=== PATIENT | female | born 1985 | race Caucasian/White ===

== ENCOUNTER 2020-02-13 22:04 | Emergency (ER) | payer BC ==
[2020-02-13] MEDS ORDERED: ASPIRIN 81 MG TABLET, CHEWABLE PO ONE (22:21)
--- NOTE | 2020-02-13 22:22 | ER Document Report ---
ED Medical Screen (RME) - General Chief Complaint: Chest Pain Stated Complaint: CHEST PAIN Time Seen by Provider: 02/13/20 22:20 Notes: HPI: 34-year-old female who is on control presenting for evaluation of left chest tightness and discomfort. Started 3 days ago some tightness across the upper chest that was intermittent in nature. Tonight it became more constant as a tightness in the left chest with some radiation into the left narayan ulder and occasional shortness of breath. No prior history of similar discomfort. No significant family history of early coronary artery disease. I have greeted and performed a rapid initial assessment of this patient. A comprehensive ED assessment and evaluation of the patient, analysis of test results and completion of the medical decision making process will be conducted by additional ED providers PHYSICAL EXAMINATION: Patient is mildly tachycardic. Lung sounds are clear to auscultation. She has no reproducible pain in the left chest wall on palpation. EKG shows some mild depression of the inferior leads Past Medical History - Social History Chew tobacco use (# tins/day): No Frequency of alcohol use: None Drug Abuse: None Physical Exam - Vital signs Vitals: Temp Pulse Resp BP Pulse Ox 97.4 F 71 20 150/102 H 81 L 02/13/20 22:17 02/13/20 22:17 02/13/20 22:17 02/13/20 22:17 02/13/20 22:17 Course - Vital Signs Vital signs: Temp Pulse Resp BP Pulse Ox 97.4 F 71 20 150/102 H 81 L 02/13/20 22:17 02/13/20 22:17 02/13/20 22:17 02/13/20 22:17 02/13/20 22:17
[2020-02-13 22:49] LABS: ABSOLUTE BASOPHILS # (AUTO) 0.1 10^3/uL (0.0-0.2); ABSOLUTE EOSINOPHILS # (AUTO) 0.2 10^3/uL (0.0-0.6); ABSOLUTE MONOCYTES (AUTO) 0.8 10^3/uL (0.1-1.4); ABSOLUTE NEUT (AUTO) 7.1 10^3/uL (1.7-8.2); BASOPHILS % (AUTO) 1.1 % (0-2); EOSINOPHILS % (AUTO) 1.5 % (0-6); HEMATOCRIT 41.5 % (36.0-47.0); HEMOGLOBIN 13.8 g/dL (12.0-15.5); LYMPHOCYTES % (AUTO) 27.1 % (13-45); MEAN CORPUSCULAR HEMOGLOBIN 26.8 pg (27.0-33.4); MEAN CORPUSCULAR HGB CONC 33.2 g/dL (32.0-36.0); MEAN CORPUSCULAR VOLUME 81 fl (80-97); MONOCYTES % (AUTO) 6.8 % (3-13); PLATELET COUNT 227 10^3/uL (150-450); RED BLOOD COUNT 5.14 10^6/uL (3.72-5.28); RED CELL DISTRIBUTION WIDTH 13.1 % (11.5-14.0); SEGMENTED NEUTROPHILS % (AUTO) 63.5 % (42-78); TOTAL CELLS COUNTED % (AUTO) 100 %; WHITE BLOOD COUNT 11.2 10^3/uL (4.0-10.5)
[2020-02-13 23:09] LABS: ALBUMIN 4.1 g/dL (3.5-5.0); ALKALINE PHOSPHATASE 80 U/L (38-126); ANION GAP 12 (5-19); ASPARTATE AMINO TRANSFERASE 18 U/L (14-36); BILIRUBIN,DIRECT 0.3 mg/dL (0.0-0.4); BILIRUBIN,TOTAL 0.4 mg/dL (0.2-1.3); BLOOD UREA NITROGEN 17 mg/dL (7-20); CALCIUM 9.9 mg/dL (8.4-10.2); CARBON DIOXIDE 25 mmol/L (22-30); CHLORIDE 102 mmol/L (98-107); GLUCOSE 112 mg/dL (75-110); POTASSIUM 4.1 mmol/L (3.6-5.0)
--- NOTE | 2020-02-13 23:14 | RADIOLOGY REPORT (SQ) ---
EXAM DESCRIPTION: PA and lateral radiographs of the chest. CLINICAL HISTORY: 34 years Female, chest pain COMPARISON: None. FINDINGS: Lungs: Lungs are clear. No pneumonia or edema. No pneumothorax or pleural effusion. Mediastinum: Cardiac and mediastinal silhouette are normal. Bones: Osseous structures are normal. IMPRESSION: Unremarkable radiographs of the chest
--- NOTE | 2020-02-13 23:47 | ER Document Report ---
ED Cardiac - General Chief Complaint: Chest Pain Stated Complaint: CHEST PAIN Time Seen by Provider: 02/13/20 22:20 Primary Care Provider: BELLA ROBLES MD [Primary Care Provider] - Follow up as needed SABI STRAUSS MD [ACTIVE STAFF] - Follow up in 1 week ZBIGNIEW ROBERTSON MD [ACTIVE STAFF] - Follow up in 1 week GERALD WILKINS MD [EMERITUS] - Follow up in 1 week Notes: Patient is a 34-year-old female who presents to the emergency department with a chief complaint of chest pain. Patient states that her chest pain started about 2 to 3 days ago and she felt a "warmth" in her chest. States that it would come and go and then tonight it got worse. Patient states that her pain is in the left side of her chest. She also reports a tightness in her chest. States that this evening she felt some tingling in her left arm. Patient is currently on control. She also has history of vitamin D deficiency, which she takes [id number] vitamin D4. Patient states that she took the aspirin in triage and a few minutes later she felt better. States that the pain is still there, but not quite as intense. - Related Data Allergies/Adverse Reactions: No Known Allergies Allergy (Unverified 02/13/20 22:23) Past Medical History - Social History Smoking Status: Never Smoker Chew tobacco use (# tins/day): No Frequency of alcohol use: None Drug Abuse: None Family History: Reviewed & Not Pertinent Patient has suicidal ideation: No Patient has homicidal ideation: No Review of Systems - Review of Systems Notes: REVIEW OF SYSTEMS: CONSTITUTIONAL : Denies recent illness. Denies recent unintentional weight loss. Denies fever, chills, or sweats. EENT: Denies eye, ear, throat, or mouth pain, discharge, or symptoms. Denies nasal or sinus congestion. CARDIOVASCULAR: See HPI. RESPIRATORY: Denies shortness of breath, cough, congestion, difficulty breathing, or wheezing. GASTROINTESTINAL: Denies nausea, vomiting, and diarrhea. Denies abdominal pain. Denies constipation. GENITOURINARY: Denies difficulty urinating, burning, blood in urine, urgency or frequency. MUSCULOSKELETAL: Denies neck and back pain. Denies joint pain or swelling. SKIN: Denies rash, itchiness, or lesions HEMATOLOGIC : Denies easy bruising or bleeding. LYMPHATIC: Denies swollen, painful, enlarged glands. NEUROLOGICAL: Denies no numbness or tingling denies weakness. Denies headache. Denies altered mental status. Denies alteration in speech. PSYCHIATRIC: Denies stress, anxiety, alteration in sleep patterns, or depression. All other systems reviewed and negative. Physical Exam - Vital signs Vitals: Pulse Ox 100 02/13/20 22:04 - Notes Notes: PHYSICAL EXAMINATION: GENERAL: Appears well, healthy, well-nourished, no acute distress. HEAD: Normocephalic, atraumatic. EYES: PERRL, conjunctiva normal, all extraocular movements intact, sclera hans cteric ENT: Moist mucous membranes. NECK: Supple, no noticeable swelling, redness, rash. Normal range of motion. LUNGS: Equal breath sounds bilaterally and clear to auscultation. No wheezes rales or rhonchi. CARDIOVASCULAR: S1-S2, tachycardic, regular rhythm. Radial pulses 2+, normal. ABDOMEN: Normoactive bowel sounds. Soft, nontender, no guarding, no rebound tenderness, and no masses palpated. EXTREMITIES: Normal strength and range of motion, no pitting or edema. No cyanosis. NEUROLOGICAL: Moves all extremities upon command. Strength 5/5 in all extremities. PSYCH: Normal mood, normal affect. SKIN: Warm, dry. No rash, lesions, ulcerations noted. Normal skin turgor. Course - Re-evaluation Re-evalutation: 02/14/20 01:00 Hematology shows a leukocytosis of 11,200. Chemistries are unremarkable. Initial troponin is 0.015. Due to the patient having an initial troponin of 0.2015, the patient will stay for another repeat troponin. CTA of the chest is negative for a PE. Chest x-ray was normal. 02/14/20 05:11 Second troponin is negative. Advised patient to follow-up with cardiology. She is in agreement with this plan. Follow-up precautions were given. Verbal discharge instructions were given to the patient. They verbalized understanding. They are stable for discharge. - Vital Signs Vital signs: Temp Pulse Resp BP Pulse Ox 98.2 F 96 18 130/91 H 99 02/14/20 05:19 02/14/20 05:19 02/14/20 05:19 02/14/20 05:19 02/14/20 05:19 - Laboratory Result Diagrams: 02/13/20 22:35 02/13/20 22:35 Laboratory results interpreted by me: 02/13/20 02/13/20 22:35 22:35 WBC 11.2 H MCH 26.8 L Glucose 112 H - EKG Interpretation by Me Additional EKG results interpreted by me: 02/14/20 Sinus tachycardia. Heart rate 103. LA 132; QRS 92; QT 344; QTc 451. No ST elevations or depressions noted. No previous EKG for comparison. Discharge - Discharge Clinical Impression: Chest pain Qualifiers: Chest pain type: unspecified Qualified Code(s): R07.9 - Chest pain, unspecified Condition: Stable Disposition: HOME, SELF-CARE Additional Instructions: You were seen today for chest pain. The exact cause of your pain is unclear. However, based on your cardiac enzyme testing, chest x-ray, and EKG it does not appear that it is from an immediately life-threatening cause at this time. Although your testing here is normal is critical that you follow-up with your primary care physician for continued evaluation of this chest pain and possible stress testing. I recommended you see your physician within the next 24-48 hours to be evaluated for consideration of a stress test. Please return to emergency department immediately if you have worsening of your chest pain, shortness of breath, vomiting, become unable to exert yourself due to pain or difficulty breathing, you pass out, or have any pain that radiates into your arms, jaw, or back. Please also return if you have any additional symptoms that are concerning to you. Referrals: BELLA ROBLES MD [Primary Care Provider] - Follow up as needed ZBIGNIEW ROBERTSON MD [ACTIVE STAFF] - Follow up in 1 week SABI STRAUSS MD [ACTIVE STAFF] - Follow up in 1 week GERALD WILKINS MD [EMERITUS] - Follow up in 1 week
--- NOTE | 2020-02-14 01:12 | RADIOLOGY REPORT (SQ) ---
EXAM DESCRIPTION: CT CHEST ANGIOGRAPHY WITHOUT THEN WITH IV CONTRAST COMPLETED DATE/TME: 02/14/2020 00:01 : CLINICAL HISTORY: 34 years Female chest pain; on control COMPARISON: None. TECHNIQUE: Contiguous axial images obtained through the chest following IV contrast. MIP images obtained. This exam was performed according to our department optimization program which includes automated exposure control, adjustment of the mA and/or kv according to patient size and/or use of iterative reconstruction technique. FINDINGS: No pneumothorax. No pulmonary infiltrate or consolidation. No significant thoracic adenopathy. No evidence of pulmonary embolus. Cardiac size is within normal limits. Aorta is unremarkable. Small amount residual thymic tissue in anterior mediastinum. IMPRESSION: No evidence of pulmonary embolus No evidence of acute process
[2020-02-14 05:20] VITALS: BP 130/91
--- NOTE | 2020-02-14 12:30 | EKG REPORT ---
SEVERITY:- OTHERWISE NORMAL ECG - SINUS TACHYCARDIA MINIMAL ST DEPRESSION, INFERIOR LEADS : Confirmed by: Opal Buckner MD 14-Feb-2020 12:30:21
== END 2020-02-14 05:28 | disposition home or self-care (01) ==
LOC: ER 22:04
DX: R07.89 Other chest pain (principal); R20.2 Paresthesia of skin; D72.829 Elevated white blood cell count, unspecified; R00.0 Tachycardia, unspecified; E55.9 Vitamin D deficiency, unspecified; Z79.3 Long term (current) use of hormonal contraceptives; Z79.899 Other long term (current) drug therapy
CPT/HCPCS: 36415; 71046; 71275; 80053; 84484; 85025; 93005; 93010; 99285